=== PATIENT | male | born 1995 | race African-American/Black ===

== ENCOUNTER 2018-07-29 11:27 | Emergency (ER) | payer MEDICAID ==
[~2018-07-29] VITALS: Ht 182.9 cm; Wt 71.1 kg
[2018-07-29] MEDS ORDERED: KETOROLAC 15MG/ML VIAL IV ONE (13:15)
[2018-07-29] MEDS ORDERED: TETANUS, DIPHTHERIA, PERTUSSIS VAC/PF 0.5ML (>7YR OLD) IM ONE (13:15)
[2018-07-29 13:58] VITALS: BP 113/63
== END 2018-07-29 14:01 | disposition left against medical advice (07) ==
LOC: ER 11:27
DX: S31.112A Laceration without foreign body of abdominal wall, epigastric region without penetration into peritoneal cavity, initial encounter (principal); F17.200 Nicotine dependence, unspecified, uncomplicated; F12.10 Cannabis abuse, uncomplicated; W26.8XXA Contact with other sharp object(s), not elsewhere classified, initial encounter; Y93.89 Activity, other specified; Y92.89 Other specified places as the place of occurrence of the external cause; Y99.8 Other external cause status
CPT/HCPCS: 71045; 93005; 99283

== ENCOUNTER 2018-08-03 15:28 | Emergency (ER) | payer MEDICAID ==
[~2018-08-03] VITALS: Ht 180.3 cm; Wt 73.0 kg
[2018-08-03 17:17] LABS: CHLORIDE 106 mEq/L (98-107)
[2018-08-03 17:18] LABS: BASOPHILS % 0.5 % (0.0-2.0); EOSINOPHILS % 0.7 % (0.0-5.0); HEMATOCRIT. 46.5 % (42.0-52.0); HEMOGLOBIN. 15.7 g/dL (14.0-18.0); LYMPHOCYTES % 28.1 % (20.0-50.0); MEAN CORPUSCULAR HEMOGLOBIN 31.6 pg (28.0-32.0); MEAN CORPUSCULAR VOLUME 93.8 fL (80.0-94.0); MEAN PLATELET VOLUME 7.8 fl (7.4-10.4); NEUTROPHILS % 66.7 % (40.0-76.0); PLATELET 241 x1000/uL (130-400); RED BLOOD CELL COUNT 4.96 mill/uL (4.7-6.1); RED CELL DISTRIBUTION WIDTH 13.6 % (11.6-14.6)
[2018-08-03] MEDS ORDERED: IOHEXOL-300 100 ML BOTTLE ONE (18:58)
[2018-08-03 19:49] VITALS: BP 112/78
== END 2018-08-03 19:50 | disposition home or self-care (01) ==
LOC: ER 15:28
DX: S31.111A Laceration without foreign body of abdominal wall, left upper quadrant without penetration into peritoneal cavity, initial encounter (principal); S41.012A Laceration without foreign body of left shoulder, initial encounter; F17.210 Nicotine dependence, cigarettes, uncomplicated; F12.10 Cannabis abuse, uncomplicated; W26.8XXA Contact with other sharp object(s), not elsewhere classified, initial encounter; Y93.89 Activity, other specified; Y92.89 Other specified places as the place of occurrence of the external cause
CPT/HCPCS: 36415; 71260; 73030; 74177; 80053; 85025; 99284; Q9967; Z7610

== ENCOUNTER 2018-08-11 22:21 | Emergency (ER) | payer MEDICAID ==
[~2018-08-11] VITALS: Ht 180.3 cm; Wt 72.0 kg
[2018-08-12] MEDS ORDERED: CEFTRIAXONE SODIUM 250 MG/VIAL IM ONE (00:30)
[2018-08-12] MEDS ORDERED: AZITHROMYCIN 500 MG TABLET PO ONE (00:30)
[2018-08-12] MEDS ORDERED: LIDOCAINE HCL 1% 20ML VIAL (Pyxis) INJ INFIL ONE (00:30)
[2018-08-12 00:47] LABS: CLARITY URINE CLEAR (CLEAR); COLOR URINE YELLOW (YELLOW); KETONES URINE 1+ (NEGATIVE); LEUKOCYTE ESTERASE URINE 1+ (NEGATIVE); NITRITE URINE NEGATIVE (NEGATIVE); OCCULT BLOOD URINE NEGATIVE (NEGATIVE); PH URINE 5.5 (4.5-8.0); PROTEIN URINE TRACE (NEGATIVE); SPECIFIC GRAVITY URINE 1.033 (1.005-1.030)
[2018-08-12 01:31] VITALS: BP 116/67
[2018-08-16 04:14] LABS: CHLAMYDIA TRACHOMATIS NAA Negative (Negative); NEISSERIA GONORRHOEAE NAA Negative (Negative)
== END 2018-08-12 01:32 | disposition home or self-care (01) ==
LOC: ER 23:31
DX: N34.2 Other urethritis (principal); A63.8 Other specified predominantly sexually transmitted diseases; F12.10 Cannabis abuse, uncomplicated; F17.200 Nicotine dependence, unspecified, uncomplicated
CPT/HCPCS: 81003; 87086; 87491; 87591; 96372; 99283; J0696; J3490; Z7610